=== PATIENT | female | born 1940 | race Caucasian/White ===

== ENCOUNTER 2018-10-30 06:41 | Day surgery (SDC) | payer OTHER ==
[2018-10-30] MEDS: TROPICAMIDE 1% 15 ML OPH OPER (07:53)
[2018-10-30] MEDS: CYCLOPENTOLATE/PHENYLEPH 2 ML OPH OPER (07:54)
[2018-10-30] MEDS: DICLOFENAC 0.1% 2.5 ML OPH OPER (07:54)
[2018-10-30] MEDS: MOXIFLOXACIN 0.5% 3 ML OPH OPER (07:54)
[2018-10-30] MEDS ORDERED: SOD CHLORIDE 0.9% 1,000 ML IV (08:00)
[2018-10-30] MEDS ORDERED: CARBACHOL 0.01% 1.5 ML OPH INJ (08:25)
[2018-10-30] MEDS ORDERED: NA HYALURONATE/CHONDROITIN 0.5 ML SYG (08:26)
[2018-10-30] MEDS ORDERED: LIDOCAINE 2% (SDV) 5 ML INJ (08:41)
[2018-10-30] MEDS ORDERED: PROPOFOL 20 ML (08:41)
[2018-10-30] MEDS: GENTAMICIN 80 MG INJ (08:42)
[2018-10-30] MEDS: DEXAMETHASONE 4 MG/ML 1 ML INJ (08:42)
[2018-10-30] MEDS: LIDOCAINE 4% (MPF) 5 ML INJ (08:42)
[2018-10-30] MEDS: EPINEPHrine 1 MG INJ (08:42)
[2018-10-30] MEDS: CEFAZOLIN 1 GM INJ (08:42)
[2018-10-30] MEDS: TETRACAINE 0.5% 4 ML OPH (08:42)
[2018-10-30] MEDS ORDERED: FENTAnyl 50 MCG/ML VIAL IV (09:00)
[2018-10-30] MEDS ORDERED: LABETALOL HCL 20MG INJ IV (09:00)
[2018-10-30] MEDS ORDERED: HYDROmorphONE 1 MG/5 ML IV SYRINGE IV (09:00)
[2018-10-30] MEDS ORDERED: OXYCODONE/ACETAMINOPHEN (5/325) TAB PO (09:00)
[2018-10-30] MEDS: hydrALAzine 20 MG INJ IV (09:38)
[2018-10-30] MEDS: ONDANSETRON 4 MG INJ IV (09:38)
== END 2018-10-30 10:27 | disposition home or self-care (01) ==
LOC: SDS 06:41
DX: H25.12 Age-related nuclear cataract, left eye (principal); H40.1190 Primary open-angle glaucoma, unspecified eye, stage unspecified; I10 Essential (primary) hypertension; I70.0 Atherosclerosis of aorta
CPT/HCPCS: 66984